=== PATIENT | female | born 1985 | race Caucasian/White ===

== ENCOUNTER 2020-10-05 20:52 | Inpatient (IN) | payer BC ==
[~2020-10-05] VITALS: Ht 162.6 cm; Wt 76.7 kg
[2020-10-05] MEDS ORDERED: LACTATED RINGERS 1000ML 1,000 ML IV SCH (21:15)
[2020-10-05 21:27] LABS: APPEARANCE,URINE Clear (CLEAR); BILIRUBIN,URINE Negative (NEGATIVE); COLOR,URINE Yellow (YELLOW); GLUCOSE, URINE (UA) Negative (NEGATIVE); KETONES,URINE 40 mg/dL (NEGATIVE); LEUKOCYTE ESTERASE ,URINE Trace (NEGATIVE); NITRATE,URINE Negative (NEGATIVE); OCCULT BLOOD,URINE Nonhemolyzed Trace (NEGATIVE); PROTEIN,URINE Negative (NEGATIVE); UROBILINOGEN,URINE 0.2 mg/dL (0.2-1.0)
[2020-10-05] MEDS ORDERED: LACTATED RINGERS 1000ML 1,000 ML IV PRN (21:30)
[2020-10-05 21:35] LABS: AMPHET/METH SCREEN,URINE NEGATIVE (NEGATIVE); BARBITURATE SCREEN, URINE NEGATIVE (NEGATIVE); BENZODIAZEPINES SCREEN,URINE NEGATIVE (NEGATIVE); CANNABINOID SCREEN,URINE NEGATIVE (NEGATIVE); COCAINE SCREEN,URINE NEGATIVE (NEGATIVE); OPIATE SCREEN,URINE NEGATIVE (NEGATIVE); PHENCYCLIDINE SCREEN,URINE NEGATIVE (NEGATIVE)
[2020-10-05 21:39] LABS: BACTERIA,URINE Few /HPF (None Seen); MUCUS,URINE Few LPF (None Seen); SQUAMOUS EPITHELIAL CELL,UR Moderate /HPF (0-2)
[2020-10-05 22:04] LABS: HEMATOCRIT 44.2 % (36-48); MEAN CORPUSCULAR HEMOGLOBIN 32.4 pg (27.0-33.0); MEAN CORPUSCULAR HGB CONC 34.2 g/dL (32.0-36.0); MEAN CORPUSCULAR VOLUME 94.8 fL (79-99); RED BLOOD CELL COUNT(AUTO) 4.66 MIL/uL (4.00-5.50); RED CELL DISTRIBUTION WIDTH 13.6 % (11.0-15.5); WHITE BLOOD COUNT (AUTO) 8.8 K/uL (4.8-10.8)
[2020-10-05] MEDS ORDERED: PROMETHAZINE HCL 25 MG/ML 1ML AMPULE IM PRN (22:45)
[2020-10-05] MEDS ORDERED: EPHEDRINE SULFATE 50 MG/ML AMPULE IVP PRN (22:45)
[2020-10-05] MEDS ORDERED: MEPERIDINE-PF 50 MG/ML SYG IVP PRN (22:45)
[2020-10-05] MEDS ORDERED: LACTATED RINGERS 500 ML 500 ML IV PRN (22:45)
[2020-10-05] MEDS ORDERED: NALOXONE HCL 0.4 MG/1 ML ML IV PRN (22:45)
[2020-10-05] MEDS ORDERED: ROPIVACAINE 0.2% 100ML VIAL 100 ML EP PRN (22:45)
[2020-10-06 03:00] VITALS: BP 111/59
[2020-10-06] MEDS ORDERED: OXYTOCIN-LR 20 UNITS/1000 ML 1,000 ML IV ONE ×2 (03:08→11:11)
[2020-10-06 09:30] LABS: RAPID PLASMA REAGIN NONREACTIVE (NONREACTIVE)
[2020-10-06] MEDS ORDERED: OXYTOCIN 10 USP UNITS/ML ONE (11:09)
[2020-10-06] MEDS ORDERED: TRANEXAMIC ACID 1000MG/10ML ONE (11:09)
[2020-10-06] MEDS ORDERED: METHYLERGONOVINE MALEATE 0.2 MG/1 ML ML ONE (11:10)
[2020-10-06] MEDS ORDERED: MISOPROSTOL 200 MCG TABLET ONE (11:10)
[2020-10-06] MEDS ORDERED: BENZOCAINE/LANOLIN/ALOE VERA 60 ML AEROSOL TP PRN (12:00)
[2020-10-06] MEDS ORDERED: OXYTOCIN-LR 20 UNITS/1000 ML 1,000 ML IV SCH (12:00)
[2020-10-06] MEDS ORDERED: MEASLES/MUMPS/RUBELLA VACCINE, LIVE 0.5 ML/VIAL SQ PRN (12:00)
[2020-10-06] MEDS ORDERED: IBUPROFEN 600 MG TABLET PO PRN (12:00)
[2020-10-06] MEDS ORDERED: ACETAMINOPHEN WITH CODEINE 1 TAB TAB PO PRN (12:00)
[2020-10-06] MEDS ORDERED: DIPH,PERTUSS(ACELL),TET VAC/PF 0.5 ML VIAL IM PRN (12:00)
[2020-10-06] MEDS ORDERED: ACETAMINOPHEN 325 MG TAB PO PRN (12:00)
[2020-10-06] MEDS ORDERED: LANOLIN 30GM OINTMENT TP PRN (12:00)
[2020-10-06] MEDS ORDERED: WITCH HAZEL 1 PAD TP PRN (12:00)
[2020-10-06 16:05] VITALS: BP 115/60
[2020-10-06 16:15] VITALS: BP 115/65
[2020-10-06 19:34] VITALS: BP 119/64
[2020-10-06] MEDS: DOCUSATE SODIUM 100 MG CAP PO SCH (22:04)
[2020-10-06 23:33] VITALS: BP 98/55
[2020-10-07 03:16] VITALS: BP 87/47
[2020-10-07 07:16] VITALS: BP 94/52
[2020-10-07] MEDS: DOCUSATE SODIUM 100 MG CAP PO SCH (09:18)
[2020-10-07 11:09] VITALS: BP 93/51
[2020-10-08 03:11] LABS: HEPATITIS Bs ANTIGEN SCREEN P Negative (Negative)
== END 2020-10-07 13:25 | disposition home or self-care (01) | DRG 807 ==
LOC: EDH 20:52 → OBSVTOIN 21:13 → LDH 21:13 → WSH 10-06 16:12
PROVIDERS: ADMIT Obstetrics & Gynecology; ATTEND Obstetrics & Gynecology
PROC: 10E0XZZ Delivery of Products of Conception, External Approach (ICD-10-PCS; principal; 2020-10-06)
PROC: 0HQ9XZZ Repair Perineum Skin, External Approach (ICD-10-PCS; 2020-10-06)
PROC: 3E0234Z Introduction of Serum, Toxoid and Vaccine into Muscle, Percutaneous Approach (ICD-10-PCS; 2020-10-06)
PROC: 3E0134Z Introduction of Serum, Toxoid and Vaccine into Subcutaneous Tissue, Percutaneous Approach (ICD-10-PCS; 2020-10-06)
DX: O77.0 Labor and delivery complicated by meconium in amniotic fluid (principal); Z37.0 Single live birth; Z3A.39 39 weeks gestation of pregnancy; O70.0 First degree perineal laceration during delivery; Z23 Encounter for immunization; Z88.5 Allergy status to narcotic agent; Z91.013 Allergy to seafood; Z91.018 Allergy to other foods
CPT/HCPCS: 36415; 80305; 81001; 85027; 86592; 86701; 86850; 86900; 86901; 87340; 87390; A4351; G0378; J2175; J2210; J2550; J2590; J3490; J7120